=== PATIENT | female | born 1970 | race Caucasian/White ===

== ENCOUNTER 2017-03-19 16:04 | Emergency (ER) | payer MEDICAID ==
[~2017-03-19 16:04] MED LIST: METF500T PO; OMEP40CA37 PO
[2017-03-19] MEDS ORDERED: ondansetron 4mg rapidly disintigrating tab PO ONE (17:30)
[2017-03-19] MEDS ORDERED: ONDA4TAB9 SL (17:38)
[2017-03-19] MEDS ORDERED: SULF1TAB49 PO (17:38)
[2017-03-19 17:43] LABS: CLARITY,URINE CLOUDY (Clear); COLOR,URINE STRAW (Yellow); GLUCOSE, URINE >=1000 mg/dl (Neg); KETONES,URINE TRACE mg/dl (Neg); LEUKOCYTE ESTERASE ,URINE TRACE (Neg); NITRITES, URINE POSITIVE (Neg); OCCULT BLOOD,URINE LARGE (Neg); PROTEIN,URINE 30 mg/dl (Neg); UROBILINOGEN,URINE 0.2 E.U/dL (0.2-1.0)
[2017-03-19 17:50] LABS: UA COLLECTION TYPE CLN CATCH MIDSTREAM
[2017-03-19 17:51] LABS: BACTERIA,URINE 1+ /HPF (Neg); MUCUS STRANDS FEW /LPF (Neg); SQUAMOUS EPITHELIAL CELL,UR FEW /LPF (FEW); WBC,URINE 50-100 /HPF (0-4)
[2017-03-19 18:44] VITALS: BP 156/99
== END 2017-03-19 18:46 | disposition home or self-care (01) ==
LOC: ER 16:05
DX: N39.0 Urinary tract infection, site not specified (principal); R10.9 Unspecified abdominal pain; R31.9 Hematuria, unspecified; R11.0 Nausea; E11.8 Type 2 diabetes mellitus with unspecified complications
CPT/HCPCS: 81001; 87077; 87088; 87186; 99284

== ENCOUNTER 2017-09-15 17:33 | Emergency (ER) | payer MEDICAID ==
[~2017-09-15] VITALS: Ht 167.6 cm; Wt 94.0 kg
[2017-09-15 18:01] LABS: HEMATOCRIT 30.7 % (35.0-45.0); HEMOGLOBIN 9.7 g/dl (12.0-16.0); MEAN CORPUSCULAR HEMOGLOBIN 18.2 PG (27.0-31.0); MEAN CORPUSCULAR HGB CONC 31.5 % (33.0-36.5); MEAN CORPUSCULAR VOLUME 57.8 FL (78-98); MEAN PLATELET VOLUME 6.6 FL (7.4-10.4); PLATELET COUNT 570 X10'3 (140-440); RED BLOOD COUNT 5.31 X10'6 (4.20-5.60); RED CELL DISTRIBUTION WIDTH 20.2 % (11.5-14.5); WHITE BLOOD COUNT 7.2 X10'3 (4.5-11.0)
[2017-09-15 18:13] LABS: PARTIAL THROMBOPLASTIN TIME 22 SECONDS (22-32)
[2017-09-15 18:17] LABS: ALANINE AMINOTRANSFERASE 19 U/L (12-78); ALBUMIN 4.1 G/DL (3.4-5.0); ALKALINE PHOSPHATASE 141 IU/L (46-116); ANION GAP 10 (8-16); ASPARTATE AMINO TRANSFERASE 9 U/L (10-37); BILIRUBIN,TOTAL 0.3 MG/DL (0.1-1.0); BLOOD UREA NITROGEN 13 MG/DL (7-18); BUN/CREATININE RATIO 15.7 (6.6-38.0); CALCIUM 9.3 MG/DL (8.5-10.1); CHLORIDE 98 MMOL/L (99-107); CREATININE 0.83 MG/DL (0.40-0.90); GLUCOSE 252 MG/DL (70-104); POTASSIUM 3.9 MMOL/L (3.5-5.1); SODIUM 136 MMOL/L (135-145); TOTAL CARBON DIOXIDE 28.1 MMOL/L (24-32); TOTAL PROTEIN 8.3 G/DL (6.4-8.2); eGFR 73 ML/MIN
[2017-09-15 18:23] LABS: TOTAL CELLS COUNTED 100
[2017-09-15 18:24] LABS: ANISOCYTOSIS 2+; HYPOCHROMASIA 4+; MICROCYTOSIS 3+; PLATELET ESTIMATE INCREASED
[2017-09-15 18:25] LABS: ELLIPTOCYTES 1+; POLYCHROMASIA FEW; SPHEROCYTES FEW; TARGET CELLS FEW
[2017-09-15 18:30] LABS: POIKILOCYTOSIS 1+; TEAR DROP CELLS FEW
[2017-09-15] MEDS ORDERED: aspirin 81mg tab.chew PO ONE (21:10)
[2017-09-15 21:46] VITALS: BP 137/76
== END 2017-09-15 21:48 | disposition home or self-care (01) ==
LOC: ER 17:34
DX: R00.2 Palpitations (principal); I10 Essential (primary) hypertension; E78.5 Hyperlipidemia, unspecified; E11.65 Type 2 diabetes mellitus with hyperglycemia; D64.9 Anemia, unspecified; E78.00 Pure hypercholesterolemia, unspecified; Z79.84 Long term (current) use of oral hypoglycemic drugs; Z88.1 Allergy status to other antibiotic agents; Z88.8 Allergy status to other drugs, medicaments and biological substances
CPT/HCPCS: 36415; 71045; 80053; 84439; 84443; 84484; 85025; 85610; 85730; 93005; 99285

== ENCOUNTER 2019-07-15 03:36 | Emergency (ER) | payer MEDICAID ==
[~2019-07-15] VITALS: Ht 167.6 cm; Wt 93.2 kg
[~2019-07-15 03:36] MED LIST changes: +OMEP40CA13 PO; -OMEP40CA37 PO
[2019-07-15 04:07] LABS: BASOPHILS % (AUTO) 0.8 % (0-1); EOSINOPHILS # (AUTO) 0.2 X10'3 (0-0.9); EOSINOPHILS % (AUTO) 3.3 % (0-6); HEMATOCRIT 45.4 % (35.0-45.0); HEMOGLOBIN 15.3 g/dl (12.0-16.0); LYMPHOCYTES # (AUTO) 2.3 X10'3 (1.1-4.8); LYMPHOCYTES % (AUTO) 45.5 % (21-51); MEAN CORPUSCULAR HEMOGLOBIN 29.4 PG (27.0-31.0); MEAN CORPUSCULAR HGB CONC 33.7 g/dL (33.0-36.5); MEAN CORPUSCULAR VOLUME 87.2 FL (78-98); MEAN PLATELET VOLUME 6.9 FL (7.4-10.4); MONOCYTES # (AUTO) 0.5 X10'3 (0-0.9); MONOCYTES % (AUTO) 9.8 % (2-12); NEUTROPHILS % (AUTO) 40.6 % (42-75); PLATELET COUNT 323 X10'3 (140-440)
[2019-07-15] MEDS ORDERED: PIOG15TA8 PO (04:07)
[2019-07-15] MEDS ORDERED: LOSA25TA96 PO ×2 (04:07→04:08)
[2019-07-15] MEDS ORDERED: ASPI-1265 PO (04:08)
[2019-07-15 04:21] LABS: ALANINE AMINOTRANSFERASE 27 U/L (12-78); ALBUMIN 3.9 G/DL (3.4-5.0); ALBUMIN/GLOBULIN RATIO 1.1 (1.1-1.5); ALKALINE PHOSPHATASE 187 IU/L (46-116); ANION GAP 12 (8-16); ASPARTATE AMINO TRANSFERASE 17 U/L (10-37); BILIRUBIN,TOTAL 0.5 MG/DL (0.1-1.0); BLOOD UREA NITROGEN 12 MG/DL (7-18); CHLORIDE 102 MMOL/L (99-107); CREATININE 0.75 MG/DL (0.40-0.90); GLUCOSE 304 MG/DL (70-104); LIPASE 298 U/L (73-393); POTASSIUM 3.9 MMOL/L (3.5-5.1); SODIUM 140 MMOL/L (135-145); TOTAL CARBON DIOXIDE 25.8 MMOL/L (24-32); TOTAL PROTEIN 7.5 G/DL (6.4-8.2); eGFR 82 ML/MIN
[2019-07-15 04:23] LABS: D-DIMER < 0.19 MG/L FEU (0-0.50)
[2019-07-15 04:29] LABS: CALCIUM 9.2 MG/DL (8.5-10.1)
[2019-07-15 08:00] VITALS: BP 124/78
== END 2019-07-15 08:05 | disposition home or self-care (01) ==
LOC: ER 03:36
DX: R07.89 Other chest pain (principal); R42 Dizziness and giddiness; R11.0 Nausea; M25.511 Pain in right shoulder; E78.00 Pure hypercholesterolemia, unspecified; I10 Essential (primary) hypertension; E11.9 Type 2 diabetes mellitus without complications; Z88.1 Allergy status to other antibiotic agents; Z79.82 Long term (current) use of aspirin; Z79.899 Other long term (current) drug therapy
CPT/HCPCS: 36415; 71045; 80053; 83690; 84484; 85025; 85379; 93005; 99285

== ENCOUNTER 2019-11-02 17:45 | Emergency (ER) | payer MEDICAID ==
[~2019-11-02] VITALS: Ht 167.6 cm; Wt 92.8 kg
[~2019-11-02 17:45] MED LIST changes: +ASPI-1265 PO; +LOSA25TA96 PO; -METF500T PO; -OMEP40CA13 PO; +PIOG15TA8 PO
[2019-11-02] MEDS ORDERED: ondansetron 4mg rapidly disintigrating tab PO ONE (18:45)
[2019-11-02] MEDS ORDERED: ibuprofen tablet 400 MG TABLET PO ONE (18:45)
--- NOTE | 2019-11-02 18:54 | NUR ---
pt states she is to dry to provide a urine sample at this time. Provider will be notified
[2019-11-02 19:10] LABS: BASOPHILS % (AUTO) 0.3 % (0-1); EOSINOPHILS % (AUTO) 0.2 % (0-6); HEMATOCRIT 45.1 % (35.0-45.0); HEMOGLOBIN 15.2 g/dl (12.0-16.0); LYMPHOCYTES # (AUTO) 0.7 X10'3 (1.1-4.8); LYMPHOCYTES % (AUTO) 16.3 % (21-51); MEAN CORPUSCULAR HEMOGLOBIN 29.7 PG (27.0-31.0); MEAN CORPUSCULAR HGB CONC 33.7 g/dL (33.0-36.5); MEAN CORPUSCULAR VOLUME 88.2 FL (78-98); MEAN PLATELET VOLUME 7.3 FL (7.4-10.4); MONOCYTES # (AUTO) 0.2 X10'3 (0-0.9); MONOCYTES % (AUTO) 4.5 % (2-12); NEUTROPHILS # (AUTO) 3.2 X10'3 (1.8-7.7); NEUTROPHILS % (AUTO) 78.7 % (42-75); PLATELET COUNT 177 X10'3 (140-440); RED BLOOD COUNT 5.12 X10'6 (4.20-5.60); RED CELL DISTRIBUTION WIDTH 13.3 % (11.5-14.5)
[2019-11-02 19:43] LABS: ALANINE AMINOTRANSFERASE 22 U/L (12-78); ALBUMIN 3.6 G/DL (3.4-5.0); ALBUMIN/GLOBULIN RATIO 0.8 (1.1-1.5); ALKALINE PHOSPHATASE 109 IU/L (46-116); ANION GAP 11 (8-16); ASPARTATE AMINO TRANSFERASE 29 U/L (10-37); BILIRUBIN,TOTAL 0.4 MG/DL (0.1-1.0); BLOOD UREA NITROGEN 10 MG/DL (7-18); BUN/CREATININE RATIO 14.3 (6.6-38.0); CALCIUM 8.7 MG/DL (8.5-10.1); CHLORIDE 100 MMOL/L (99-107); GLUCOSE 212 MG/DL (70-104); POTASSIUM 3.4 MMOL/L (3.5-5.1); SODIUM 138 MMOL/L (135-145); TOTAL CARBON DIOXIDE 27.5 MMOL/L (24-32); TOTAL PROTEIN 8.1 G/DL (6.4-8.2); eGFR 89 ML/MIN
[2019-11-02] MEDS ORDERED: DEXA6TAB PO (20:00)
[2019-11-02] MEDS ORDERED: ALBU8HFA PO (20:00)
[2019-11-02] MEDS ORDERED: DOXY100C77 PO (20:02)
[2019-11-02 20:30] VITALS: BP 157/82
== END 2019-11-02 20:30 | disposition home or self-care (01) ==
LOC: ER 17:46
DX: J06.9 Acute upper respiratory infection, unspecified (principal); R05 Cough; R50.9 Fever, unspecified; R09.89 Other specified symptoms and signs involving the circulatory and respiratory systems; E78.00 Pure hypercholesterolemia, unspecified; I10 Essential (primary) hypertension; E11.9 Type 2 diabetes mellitus without complications; Z79.2 Long term (current) use of antibiotics; Z20.828 Contact with and (suspected) exposure to other viral communicable diseases; Z79.82 Long term (current) use of aspirin; Z79.899 Other long term (current) drug therapy
CPT/HCPCS: 36415; 71045; 80053; 83605; 84145; 85025; 87040; 87635; 93005; 99285